=== PATIENT | male | born 1950 ===

== ENCOUNTER → 2017-03-28 | Emergency (ER) | payer OTHER ==
[~2017-03-28] VITALS: Ht 167.6 cm; Wt 81.6 kg
[~2017-03-28] MED LIST: ALBUTEROL2.5 MG/3 M IH; ATROVENT 00.5 MG/2.5 IH; CATAFLAM50 MG PO; ENALAPRIL MALEAT5 MG PO; LEVAQUIN750 MG PO; LIPITOR40 MG PO; NEURONTIN300 MG PO; ORPH100T PO
== END | disposition home or self-care (01) ==
LOC: ER 06:34
DX: B34.9 Viral infection, unspecified (principal)

== ENCOUNTER → 2017-05-22 | Emergency (ER) | payer OTHER ==
[~2017-05-22] VITALS: Ht 165.1 cm; Wt 81.6 kg
[~2017-05-22] MED LIST changes: +MUCINEX DM ER1 EAC1 PO; +PROMETH-CODEIN 65 ML PO; +SYMBICORT 16010.2 GM IH; +ZITHROMAX500 MG PO; +ZYNCOF 20-400120 ML PO
== END | disposition home or self-care (01) ==
LOC: ER 22:03
DX: J06.9 Acute upper respiratory infection, unspecified (principal)

== ENCOUNTER 2017-08-09 02:50 | Emergency (ER) | payer OTHER ==
[~2017-08-09] VITALS: Ht 162.6 cm; Wt 77.1 kg
[2017-08-09] MEDS ORDERED: TUSSI-PRES LIQ118 ML PO (03:57)
== END 2017-08-09 04:29 | disposition home or self-care (01) ==
LOC: ER 02:50
DX: R05 Cough (principal)